=== PATIENT | male | born 1965 | race Caucasian/White ===

== ENCOUNTER 2021-11-22 14:17 | Emergency (ER) | payer MEDICAID ==
[2021-11-22] MEDS ORDERED: Ketorolac 60 MG/2 ML SDV IM ONE (14:55)
== END 2021-11-22 16:51 | disposition home or self-care (01) ==
LOC: KA.ED 14:17
DX: N50.3 Cyst of epididymis (principal)
CPT/HCPCS: 96372; 99283; J1885

== ENCOUNTER 2021-11-26 13:04 | Emergency (ER) | payer MEDICAID ==
[2021-11-26] MEDS ORDERED: Ketorolac 30 MG/ML SDV IM ONE (13:36)
[2021-11-26] MEDS ORDERED: Ketorolac 30 MG/ML SDV ONE (13:36)
[2021-11-26] MEDS ORDERED: Acetaminophen/HYDROcodone 325-10 MG Tab PO ONE (13:43)
== END 2021-11-26 14:00 | disposition home or self-care (01) ==
LOC: KA.ED 13:04
DX: N49.2 Inflammatory disorders of scrotum (principal); L72.0 Epidermal cyst; I10 Essential (primary) hypertension; F17.210 Nicotine dependence, cigarettes, uncomplicated; Z88.5 Allergy status to narcotic agent; Z86.16 Personal history of COVID-19
CPT/HCPCS: 96372; 99283; 99284; A9270-GY; J1885